=== PATIENT | male | born 1945 | race Caucasian/White ===

== ENCOUNTER 2019-04-29 04:50 | Inpatient (IN) ==
[2019-04-29] MEDS ORDERED: CELECOXIB 200 MG CAPSULE PO SCH (06:00)
[2019-04-29] MEDS ORDERED: ceFAZolin 2 GM in DEXTROSE 5% IN WATER 50 ML IV SCH (06:00)
[2019-04-29] MEDS ORDERED: SCOPOLAMINE 1 PATCH PATCH TOPICAL PRN (06:00)
[2019-04-29] MEDS ORDERED: oxyCODONE 10 MG TAB.ER.12H PO SCH (06:00)
[2019-04-29] MEDS ORDERED: IPRATROPIUM/ALBUTEROL 3 ML AMPUL.NEB NEB PRN ×2 (06:00→08:41)
[2019-04-29] MEDS ORDERED: PREGABALIN 75 MG CAPSULE PO SCH (06:00)
[2019-04-29] MEDS ORDERED: GLYCOPYRROLATE 0.2 MG/ML VIAL IV ONE (07:35)
[2019-04-29] MEDS ORDERED: ONDANSETRON 4 MG/2 ML VIAL IV ONE (07:35)
[2019-04-29] MEDS ORDERED: LIDOCAINE HCL/PF 100 MG/5 ML SYRINGE IV ONE (07:35)
[2019-04-29] MEDS ORDERED: TRANEXAMIC ACID 1,000 MG/10 ML VIAL IV ONE (07:35)
[2019-04-29] MEDS ORDERED: HYDROmorphone 2 MG/ML VIAL IV ONE (07:35)
[2019-04-29] MEDS ORDERED: ROCURONIUM 10 MG/ML ML IV ONE (07:35)
[2019-04-29] MEDS ORDERED: PHENYLEPHRINE 10 MG/ML VIAL IV ONE (07:35)
[2019-04-29] MEDS ORDERED: KETAMINE 100 MG/ML ML IV ONE (07:35)
[2019-04-29] MEDS ORDERED: MIDAZOLAM 2 MG/2 ML VIAL IV ONE (07:35)
[2019-04-29] MEDS ORDERED: PROPOFOL 200 MG/20 ML VIAL IV ONE (07:35)
[2019-04-29] MEDS ORDERED: BUPIVACAINE W/EPI 0.5% 50 ML VIAL IJ ONE (08:09)
[2019-04-29] MEDS ORDERED: PROMETHAZINE 25 MG/ML VIAL IM PRN (08:41)
[2019-04-29] MEDS ORDERED: METHOCARBAMOL 1,000 MG/10 ML VIAL IV PRN (08:41)
[2019-04-29] MEDS ORDERED: MEPERIDINE 50 MG/ML INJECTION IM PRN (08:41)
[2019-04-29] MEDS ORDERED: ACETAMINOPHEN 1,000 MG/100 ML BOTTLE IV ONE (08:41)
[2019-04-29] MEDS ORDERED: MEPERIDINE 25 MG/ML SYRINGE IV PRN (08:41)
[2019-04-29] MEDS ORDERED: ONDANSETRON 4 MG/2 ML VIAL IV PRN ×2 (08:41→09:21)
[2019-04-29] MEDS ORDERED: LACTATED RINGERS 1,000 ML IV SCH (08:45)
--- NOTE | 2019-04-29 09:20 | Brief Operative Note ---
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
[2019-04-29] MEDS ORDERED: BISACODYL 10 MG SUPP.RECT PR PRN (09:21)
[2019-04-29] MEDS ORDERED: DEXTROSE 31 GM ORAL.SUSP PO PRN (09:21)
[2019-04-29] MEDS ORDERED: DEXTROSE 50% 50 ML VIAL IV PRN (09:21)
[2019-04-29] MEDS ORDERED: FLEETS ADULT ENEMA PR PRN (09:21)
[2019-04-29] MEDS ORDERED: POLYETHYLENE GLYCOL 3350 17 GM PACKET PO PRN (09:21)
[2019-04-29] MEDS ORDERED: TRANEXAMIC ACID 1,000 MG/10 ML VIAL IV SCH (09:21)
[2019-04-29] MEDS ORDERED: MAGNESIUM HYDROXIDE 30 ML ORAL.SUSP PO PRN (09:21)
--- NOTE | 2019-04-29 10:25 | XRay Report ---
HISTORY: Postop right shoulder replacement FINDINGS: There is a well-positioned reverse right shoulder prosthesis. There is no fracture or abnormal soft tissue calcification around the joint. IMPRESSION: Well-positioned right shoulder prosthesis Interpreted and Authenticated by: Moe Naranjo 04/29/19
[2019-04-29] MEDS: fentaNYL 100 MCG/2 ML VIAL IV PRN ×3 (10:37→10:54)
--- NOTE | 2019-04-29 11:18 | Operative Note ---
DATE OF OPERATION: 04/29/2019 PREOPERATIVE DIAGNOSES: Failed rotator cuff repair with retained hardware and pseudoparalysis with developing rotator cuff arthropathy. POSTOPERATIVE DIAGNOSES: Failed rotator cuff repair with retained hardware and pseudoparalysis with developing rotator cuff arthropathy. PROCEDURE PERFORMED: 1. Right reverse total shoulder arthroplasty placing a 28 Aequalis size 5 long Ascend Flex humeral stem, a 1.5 eccentric 0 thickness tray, a +9 insert on a 42 eccentric glenosphere on a 29 baseplate. 2. Hardware removal x4 deep of four retained metallic rotator cuff anchors. SURGEON: Jalen Hernandez M.D. INSTRUMENT MAN: Bandar Millan PA-C. The PA's assistance was required for the safe and efficient completion of the entire case. This provider's expertise and technical skill were required throughout the case. The PA assisted with preoperative coordination, intraoperative retraction, wound closure, dressing and splint application, as well as postoperative documentation and care coordination. ANESTHESIA: General. DRAINS: None. SPECIMENS: Four retained anchors, as well as some retained suture material, which were discarded. BLOOD LOSS: 250 mL. COMPLICATIONS: None. POSTOPERATIVE CONDITION: Stable. INDICATIONS FOR SURGERY: This is a 73-year-old male who had a history of previous rotator cuff repair. He had done well, I believe, initially from that, but then more recently had developed pseudoparalysis and pain. Radiographs showed a proximal migration of the humeral head with four retained metallic anchors and osteophyte formation. Physical exam reveals pseudoparalysis of the shoulder. FINDINGS AT SURGERY: There was absent rotator cuff. Post implantation showed good stability and range of motion. PROCEDURE IN DETAIL: The patient had been seen preoperatively. Informed consent had been obtained after discussion of risks and benefits of surgery. Risks including, but not limited to, bleeding; infection, possibly requiring implant removal and prolonged IV antibiotics; injury to nerves, blood vessels, other surrounding structures; anesthetic risks; incomplete or no resolution of symptoms; stiffness; weakness; dislocation; fracture; possibility of needing further revision surgery. He understood these risks and wished to proceed. Correct operative site was marked and then patient was taken to the operating room. General anesthesia was induced. He was carefully positioned in the beach chair position and pressure points carefully padded. Right shoulder and upper extremity were then carefully prepped and draped in normal sterile fashion, and a time-out was performed verifying patient name, operative site, and plan. Ioban was used to cover all skin surfaces. His previous scar was used which is a more vertically-oriented deltopectoral incision. Scalpel was used through skin and subcutaneous tissue. We then carefully dissected and identified the deltopectoral interval with the cephalic vein. This was dissected lateral with the deltoid. Irrisept was irrigated. We then palpated the bicipital groove. This was opened up, and there was no biceps present. A curved osteotome was used to perform a lesser tuberosity osteotomy. There was minimal subscap remaining, however. We then dislocated the head. We released capsule around the inferior neck, and a curved osteotome was used to remove osteophytes. Cut guide was placed in the top of the head and then a saw was used to initiate the cut. The cut guide was removed and an osteotome used to complete the cut. At this point, we identified anchors and started removing them from within the head. There were four total. We then used the canal finder and then began with the sounders. We went up to the 5-6. We then started broaching, and a size 5 seated at our neck cut. We calcar planed and then placed a cut protector. The proximal humerus was then subluxed posteriorly and a Fukuda used to retract. We exposed the glenoid. Labrum was excised circumferentially and capsule was released, carefully staying directly on bone around the inferior glenoid with the Bovie. Once we had adequate exposure, a drill guide was placed with the 10-degree up angle. We placed this flush with the inferior portion of the glenoid. Once the guide pin was placed, we used a 29 reamer until we had contacted bone circumferentially. We then used the central peg reamer. We then opened a 29 glenoid baseplate. We did drill the central hole which measured a 25. We placed a 6.5 screw on the 29 baseplate. We irrigated with Irrisept, after a minute pulse lavaged with saline. We tried to advance the screw with the baseplate, and there was no purchase, so we removed this and went up to a 9.5 screw which still did not get purchase, so we just removed this and placed a central peg manager bank. We then impacted this. We then drilled our superior and inferior locking screws and then the anterior screw actually ended up going down the center of the scapula, so we got a long screw there with excellent purchase. Posterior screw was a short non-locker. Once we had this placed, we opened a 42 inferior offset glenosphere. We placed the offset inferiorly and then impacted. We advanced the screw until it was tight. We then re-exposed the proximal humerus. Cut protector was removed. We trialed a 1.5 offset placed superiorly with a 6 tray. We started to reduce it and felt like we could reduce it easy enough, so we went up to a 9 mm. This felt like it would just barely reduce, so we went ahead and removed the trial implants. I opened a 5 stem with a 1.5 offset tray and a +9 insert with the offset placed superiorly. This was assembled on the back table while the humeral canal was irrigated with Irrisept, and after a minute pulse lavaged with saline. We then impacted the stem until it fully seated. We then reduced the shoulder with excellent tension, and it was extremely stable after with full range of motion. We irrigated Irrisept again, after a minute pulse lavaged with saline. Two holes were made in the bicipital groove, and a #2 FiberWire [id number] was used to repair the lesser tuberosity osteotomy. However, again, there was very minimal tendon tissue remaining on it. We then used a #1 Vicryl running stitch to close the deltopectoral interval. A final Irrisept irrigation was done, after a minute final pulse lavage with saline, and then a 2-0 Monocryl was used for subcutaneous and jessica for skin. Xeroform and sterile dressing were applied. Arm was placed in an abductor immobilizer. The patient was awakened, extubated, and transferred to recovery in stable condition. JOSEFA:[email or web address] Job ID: [id number] Doc ID: [id number] Jalen Hernandez MD
[2019-04-29] MEDS: 0.9 % SODIUM CHLORIDE 1,000 ML IV SCH ×2 (11:20→22:56)
[2019-04-29] MEDS: INSULIN LISPRO 1 UNIT/0.01 ML UNIT SQ SCH ×3 (11:21→21:09)
[2019-04-29] MEDS: BENZOCAINE/MENTHOL 1 LOZENGE PO PRN ×2 (12:00→15:01)
[2019-04-29] MEDS: 0.9 % SODIUM CHLORIDE 10 ML SYRINGE IV SCH ×2 (14:26→22:57)
[2019-04-29] MEDS: KETOROLAC 15 MG/ML VIAL IV PRN ×2 (15:01→23:52)
[2019-04-29] MEDS: ceFAZolin 1 GM VIAL IV SCH ×2 (15:23→23:29)
[2019-04-29] MEDS: oxyCODONE/APAP 5/325MG TABLET PO PRN ×2 (16:22→20:59)
[2019-04-29] MEDS: DOCUSATE SODIUM 100 MG CAPSULE PO SCH (20:58)
[2019-04-29] MEDS: metFORMIN 500 MG TAB.XL.24H PO SCH (20:58)
[2019-04-29] MEDS: amLODIPine 5 MG TABLET PO SCH (20:58)
[2019-04-29] MEDS: LISINOPRIL 20 MG TABLET PO SCH (20:59)
[2019-04-29] MEDS ORDERED: SENNOSIDES 1 TABLET PO SCH (21:00)
[2019-04-29] MEDS: GLIMEPIRIDE 2 MG TABLET PO SCH (21:09)
[2019-04-30] MEDS: oxyCODONE/APAP 5/325MG TABLET PO PRN ×2 (02:33→06:37)
[2019-04-30] MEDS: INSULIN LISPRO 1 UNIT/0.01 ML UNIT SQ SCH (07:21)
--- NOTE | 2019-04-30 07:42 | Discharge Summary ---
Providers - Providers Patient information: Note initiated : 04/30/19 at 7:39 am Service Date, if different from initiated Date: [] Patient: Jos Hogue 73 y/o M admitted on 04/29/19 for Right Reverse Total Shoulder Arthroplasty. Chief Complaint: [] Discharge date: 04/30/19 Hospitalization Hospital course: Pt was admitted for a R Reverse TSA. Pt was admitted on the day of procedure and dischraged on post-op day 1. Pt spent one night on the floor for IV pain meds, IV abx, and PT. Will f/u at [facility] in 2 weeks. Discharge diagnosis: R shoulder rotator cuff arthropathy Exam - Exam Clean and dry: Yes Weight bearing status: as tolerated Ortho Discharge - TSA - Patient Instructions Diet: Regular Diet Activity: activity as tolerated Total Shoulder Protocol: Leave immobilizer in place except for bathing and ROM. Abduction pillow. Continue to wear sling until seen by physician. Codman Pendulum : These exercises use momentum produced by your body to move your shoulder joint. Bend your knees and shift your weight to your front leg, then back, allowing your arm to swing in the same directions. Using the same technique, alternately shift your weight between your right and left legs, allowing your arm to swing from side to side. These exercises are also performed in counterclockwise and clockwise circular motions. Typically these exercises are performed several times per day, for a set number repetitions or minutes, such as 20 times in a row or 5 minutes at a time. Dressing Care: May shower in 2 days - Follow Up Plan Follow Up Appointments: Shaheed Millan PA-C [Physician Customer Care Specialist] - 05/14/19 8:50 am Disposition: Home, Self-Care Prognosis: Good Rehab Potential: Good Overall status at discharge: patient is progressing back to baseline - Orders For Discharge Prescriptions: HYDROcodone/ACETAMINOPHEN [[place] 7.5-325 Tablet] 1 - 2 tab PO Q4H #75 tab Pending Studies Resuscitation Status Full Code Diet Consistent Carbohydrate Diet Start SatApr 29 923 Amlodipine Besylate (Norvasc) 5 mg PO BID [facility] Last Admin: 04/29/19 20:58 Dose: 5 mg Documented by: NSTOVER Diagnostic Test (Pha) (Accu-Chek) 1 each FS ACHS [facility] Last Admin: 04/30/19 07:19 Dose: 1 each Documented by: Admin: 04/29/19 20:59 Dose: 1 each Documented by: Admin: 04/29/19 16:59 Dose: 1 each Documented by: Rory Admin: 04/29/19 11:21 Dose: 1 each Documented by: SETH Docusate Sodium (Colace) 100 mg PO BID [facility] Last Admin: 04/29/19 20:58 Dose: 100 mg Documented by: BRAD Glimepiride (Amaryl) 1 mg PO BID [facility] Last Admin: 04/29/19 21:09 Dose: 1 mg Documented by: BRAD Insulin Human Lispro (Humalog) 0 unit SQ ACHS [facility]; Protocol Last Admin: 04/30/19 07:21 Dose: Not Given Documented by: Admin: 04/29/19 21:09 Dose: 2 units Documented by: Admin: 04/29/19 17:01 Dose: Not Given Documented by: Admin: 04/29/19 11:21 Dose: Not Given Documented by: SETH Ketorolac Tromethamine (Toradol) 15 mg IV Q6HP PRN PRN Reason: Pain Stop: 05/01/19 09:23 Last Admin: 04/29/19 23:52 Dose: 15 mg Documented by: Admin: 04/29/19 15:01 Dose: 15 mg Documented by: SETH Lisinopril (Zestril) 20 mg PO BID [facility] Last Admin: 04/29/19 20:59 Dose: 20 mg Documented by: BRAD Metformin HCl (Glucophage) 1,000 mg PO BID [facility] Last Admin: 04/29/19 20:58 Dose: 1,000 mg Documented by: BRAD Morphine Sulfate (Morphine) 0 mg IV Q1HP PRN PRN Reason: PAIN LEVEL > 6 Last Admin: 04/29/19 15:01 Dose: 2 mg Documented by: Admin: 04/29/19 12:26 Dose: 2 mg Documented by: SETH Oxycodone/Acetaminophen (Percocet 5-325 Mg) 0 tab PO Q4HP PRN PRN Reason: PAIN LEVEL 3-6 Last Admin: 04/30/19 06:37 Dose: 1 tab Documented by: Admin: 04/30/19 02:33 Dose: 1 tab Documented by: Admin: 04/29/19 20:59 Dose: 2 tab Documented by: Admin: 04/29/19 16:22 Dose: 2 tab Documented by: SETH Senna (Senokot) 2 tab PO HS [facility] Last Admin: 04/29/19 20:58 Dose: 2 tab Documented by: BRAD Sodium Chloride (Saline Flush) 10 ml IV Q8 [facility]IE Last Admin: 04/29/19 22:57 Dose: Not Given Documented by: Admin: 04/29/19 14:26 Dose: Not Given Documented by: SETH Throat Lozenges (Cepacol) 1 lozenge PO PRN PRN PRN Reason: Sore Throat Last Admin: 04/29/19 15:01 Dose: 1 lozenge Documented by: Admin: 04/29/19 12:00 Dose: 1 lozenge Documented by: KASOscar Shift Summary 04/30/19 03:58 Shift Summary by Pamela Chandler Pt A&O x4. He received 2 Percocet x1 and 1 tab Percocet x1, Toradol x1. Pt has the immobilizer in place. Ambulated halls x2. VSS on RA. 2100 blood glucose was 152. Pt has slept much of the night. Very pleasant. He has stated that pain medications make him see things and can make him loopy but appears to be tolerating them well. IV to the L forearm is SL and patent. Up with SBA. Using urinal at bedside. Initialized on 04/30/19 03:58 - END OF NOTE
[2019-04-30] MEDS ORDERED: HYDROCHLOROTHIAZIDE 25 MG TABLET PO SCH (09:00)
[2019-04-30] MEDS ORDERED: METOPROLOL SUCCINATE 25 MG TAB.XL.24H PO SCH (09:00)
[2019-04-30] MEDS ORDERED: SIMVASTATIN 20 MG TABLET PO SCH (09:00)
[2019-04-30] MEDS ORDERED: ASPIRIN 81 MG TAB.CHEW PO SCH (09:00)
[2019-04-30] MEDS: GLIMEPIRIDE 2 MG TABLET PO SCH (09:07)
[2019-04-30] MEDS: LISINOPRIL 20 MG TABLET PO SCH (09:07)
[2019-04-30] MEDS: amLODIPine 5 MG TABLET PO SCH (09:07)
[2019-04-30] MEDS: DOCUSATE SODIUM 100 MG CAPSULE PO SCH (09:07)
[2019-04-30] MEDS: metFORMIN 500 MG TAB.XL.24H PO SCH (09:08)
== END 2019-04-30 11:45 | disposition home or self-care (01) | DRG 483 ==
LOC: MEDSUR 04:50
PROVIDERS: ADMIT Orthopaedic Surgery; ATTEND Orthopaedic Surgery